=== PATIENT | male | born 1970 | race Caucasian/White ===

== ENCOUNTER 2023-06-22 15:24 | Emergency (ER) | payer SELFPAY ==
[~2023-06-22] VITALS: Ht 177.8 cm; Wt 83.9 kg
[2023-06-22 15:37] VITALS: BP_SYST 175; PULSE 118; RESP 18; TEMP 98.1; O2SAT 98
[2023-06-22 17:00] VITALS: BP_SYST 181; PULSE 129; RESP 20; TEMP 99.3; O2SAT 98
== END 2023-06-22 17:00 ==
LOC: SED 15:24
DX: Z02.89 Encounter for other administrative examinations (principal); I10 Essential (primary) hypertension; Z79.899 Other long term (current) drug therapy
CPT/HCPCS: 99283